=== PATIENT | male | born 1935 | race Caucasian/White ===

== ENCOUNTER 2022-07-28 14:57 | Emergency (ER) | payer MEDICARE, OTHER ==
[2022-07-28] MEDS ORDERED: cephALEXin 250 MG CAPSULE PO STA (15:08)
--- NOTE | 2022-07-28 15:08 | ED Physician Documentation ---
History of Present Illness - Stated complaint Stated Complaint: RT ARM INJURY - History obtained from History obtained from: Patient - Additonal information Additional information: 86-year-old gentleman with type 2 diabetes diet-controlled who is up-to-date on tetanus scraped his right wrist on a door frame about 9 or 10 days ago. Over the last day he has developed redness, increased pain, and limited range of motion there without fevers. PD PAST MEDICAL HISTORY - Present Medications Home Medications: Ambulatory Orders Medication Instructions Recorded Confirmed cephALEXin [Keflex] 500 mg PO Q6H #28 cap 07/28/22 - Allergies Allergies/Adverse Reactions: Allergies Allergy/AdvReac Type Severity Reaction Status Date / Time aspirin Allergy Anaphylaxis Verified 07/28/22 15:06 PD ED PE NORMAL - Vitals Vital signs reviewed: Yes - General General: Alert and oriented X 3, No acute distress - Extremities Extremities: Other (There is an abrasion over the distal dorsal ulna measuring about 2 x 4 cm with surrounding cellulitis.) - Neuro Neuro: Alert and oriented X 3, Normal speech Results - Vitals Vitals: Vital Signs - 24 hr 07/28/22 15:03 Temperature 36.6 C Heart Rate 81 Respiratory 16 Rate Blood Pressure 158/70 H O2 Saturation 98 Oxygen O2 Source Room air PD Medical Decision Making - ED course ED course: The wound was debrided a bit and cultured. Then dressed and he is started on Keflex. Departure - Departure Disposition: 01 Home, Self Care Clinical Impression: Right arm cellulitis Condition: Good Record reviewed to determine appropriate education?: Yes Instructions: Cellulitis Dc Prescriptions: cephALEXin [Keflex] 500 mg PO Q6H #28 cap Comments: I [facility] in [place]. We are performing a wound culture, the results should be done in 48-72 hours. If antibiotic change is necessary we will call you. Return if worse in the meantime, especially if you develop increased pain, fevers, cannot keep down the medication. Otherwise follow-up with your physician in approximately 2-3 days. You can wash it soap and water. Keep it covered and moist with bacitracin ointment which is available over the counter; avoid neosporin.
[2022-07-28 15:12] VITALS: BP 158/70
[2022-07-28] MEDS ORDERED: CEPHALEXIN 250 MG Prepack 8 CAP BOTTLE PO STA (15:16)
== END 2022-07-28 15:36 | disposition home or self-care (01) ==
LOC: ED 14:57
DX: L03.113 Cellulitis of right upper limb (principal)
CPT/HCPCS: 87070; 87205; 99283; A9270

== ENCOUNTER 2023-10-13 12:31 | Outpatient (CLI) | payer MEDICARE, OTHER ==
[2023-10-13 13:14] LABS: ALBUMIN 3.9 g/dL (3.2-5.5); CALCIUM 9.4 mg/dL (8.5-10.3); CREATININE 1.3 mg/dL (0.6-1.3); PHOSPHORUS 2.7 mg/dL (2.5-5.0); POTASSIUM 4.1 mmol/L (3.5-4.5)
== END 2023-10-13 12:32 | disposition home or self-care (01) ==
LOC: LAB 12:31
PROVIDERS: ATTEND Specialist
DX: N17.9 Acute kidney failure, unspecified (principal)
CPT/HCPCS: 36415; 80069; 84550